=== PATIENT | male | born 1995 | race Caucasian/White ===

== ENCOUNTER 2018-09-17 15:11 | Emergency (ER) | payer OTHER ==
--- NOTE | 2018-09-17 15:15 | PDOC ---
Rapid Medical Evaluation Time Seen by Provider: 09/17/18 15:13 Medical Evaluation: 09/17/18 15:14 I have performed a brief in-person evaluation of this patient. The patient presents with a chief complaint of: rash to arms and face x2 days Pertinent physical exam findings: macularpapular rash to b/l AC and periorbital I have ordered the following: nothing The patient will proceed to the ED for further evaluation. Discharge Disposition - Diagnosis Rash - Referrals - Patient Instructions - Post Discharge Activity
[2018-09-17 15:17] VITALS: BP 121/67; PULSE 73; BMI 25.1
[2018-09-17] MEDS ORDERED: DEXAMETHASONE LIQUID 0.5 MG/5 ML 240 ML BULK BOTTLE PO ONE (15:29)
--- NOTE | 2018-09-17 15:35 | PDOC ---
History of Present Illness - General Chief Complaint: Allergic Reaction Stated Complaint: Allergic Reaction Time Seen by Provider: 09/17/18 15:13 - History of Present Illness Initial Comments: 09/17/18 15:30 23-year-old male without comorbidities presents for evaluation of rash times one day. He took Benadryl prior to arrival which helped with his itching. Past History - Past Medical History Allergies/Adverse Reactions: Allergies Allergy/AdvReac Type Severity Reaction Status Date / Time No Known Allergies Allergy Verified 09/17/18 15:17 Home Medications: Ambulatory Orders NK [No Known Home Medication] 09/17/18 COPD: No - Suicide/Smoking/Psychosocial Hx Smoking History: Current every day smoker Have you smoked in the past 12 months: Yes Number of Cigarettes Smoked Daily: 5 Information on smoking cessation initiated: No Hx Alcohol Use: No Drug/Substance Use Hx: No Substance Use Type: None Review of Systems - Review of Systems Integumentary: Yes: Pruritus, Rash *Physical Exam - Vital Signs Last Vital Signs Temp Pulse Resp BP Pulse Ox 73 18 121/67 100 09/17/18 15:15 09/17/18 15:15 09/17/18 15:15 09/17/18 15:15 - Physical Exam Comments: 09/17/18 15:31 HEAD: NC/AT EYES: Conjuntiva clear Ears: Canals and TM's normal NOSE: No d/c THROAT: Moist mucous membrances, oral pharanx clear, uvula midline NECK: Supple without adenopathy CARDIAC: S1 S2 LUNGS: CTA Full and Equal breath sounds ABDOMEN: Soft NT ND MS: Full ROM in all joints without edema NEUROLOGIC: No gross sensory or motor deficits, NVID SKIN: Normal color and temperature there is a diffuse raised wheal rash on the torso chest and face very faint with no indication of secondary infection *DC/Admit/Observation/Transfer Diagnosis at time of Disposition: Rash, Rash due to allergy - Discharge Dispostion Disposition: HOME Condition at time of disposition: Improved Decision to Admit order: No - Referrals Referrals: Zach Jeffries [Non Staff, Medical] - - Patient Instructions Printed Discharge Instructions: DI for General Allergic Reactions Additional Instructions: Return to the emergency room should symptoms worsen or go unresolved. Please follow-up with the primary care physician I recommended if you in one to 2 days for further evaluation and treatment options. You're given a dose of steroids in the emergency room which should stop the rash. If you require anything more for itching he may take Benadryl as directed. 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
[2018-09-17] MEDS ORDERED: DEXAMETHASONE SOD PHOSPHATE 10 MG/1 ML VIAL ONE (15:42)
== END 2018-09-17 16:04 | disposition home or self-care (01) ==
LOC: JERFT 15:11
DX: T78.40XA Allergy, unspecified, initial encounter (principal); R21 Rash and other nonspecific skin eruption
CPT/HCPCS: 99281-25